=== PATIENT | male | born 1990 | race Caucasian/White ===

== ENCOUNTER 2018-09-11 03:56 | Emergency (ER) | payer OTHER ==
[~2018-09-11] VITALS: Ht 180.3 cm; Wt 81.0 kg
[2018-09-11] MEDS ORDERED: PROPOFOL 10 MG/ML, 20ML IVPush ONE (04:30)
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
[2018-09-11] MEDS ORDERED: PROPOFOL 10 MG/ML, 20ML ONE ×2 (05:01→05:19)
--- NOTE | 2018-09-11 05:13 | NUR ---
ROOM SET UP, PT PLACED ON MONITORING EQUIPMENT, ETCO2, ALL VITALS STABLE. CONSENT SIGNED. DR. AGUILAR AT BEDSIDE. PROCEDURE STARTED
--- NOTE | 2018-09-11 05:20 | NUR ---
PROCEDURE FINISHED, SPLINT APPLIED. ALL VITALS STABLE. WILL AWAIT PT TO WAKE UP.
--- NOTE | 2018-09-11 05:59 | NUR ---
OFFICER HERE SPEAKING WITH PATIENT IN REGARDS TO THE INCIDENT.
[2018-09-11] MEDS ORDERED: HYDROcodone/APAP 5/325 TABLET ONE (06:30)
[2018-09-11] MEDS ORDERED: HYDROcodone/APAP 5/325 TABLET PO ONE (06:30)
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
[2018-09-11 06:43] VITALS: BP 122/74
== END 2018-09-11 07:43 | disposition home or self-care (01) ==
LOC: ED 06:19
DX: S82.852A Displaced trimalleolar fracture of left lower leg, initial encounter for closed fracture (principal); Y04.0XXA Assault by unarmed brawl or fight, initial encounter; Y93.89 Activity, other specified; Y92.009 Unspecified place in unspecified non-institutional (private) residence as the place of occurrence of the external cause; Y99.8 Other external cause status
CPT/HCPCS: 27788; 99152; 99285